=== PATIENT | female | born 1985 | race Caucasian/White ===

== ENCOUNTER 2018-02-22 16:37 | Emergency (ER) | payer OTHER ==
[~2018-02-22] VITALS: Ht 157.5 cm; Wt 86.5 kg
[~2018-02-22 16:37] MED LIST: Feosol PO; Motrin PO; NATALCARE RX1 TABLET PO; Percocet 5/325,Endoc PO; SUBUTEX2 MG SL; Zovirax PO
[2018-02-22 19:50] VITALS: BP 116/68
== END 2018-02-22 19:50 | disposition home or self-care (01) ==
LOC: EME 16:37
DX: Z76.0 Encounter for issue of repeat prescription (principal); Z33.1 Pregnant state, incidental; Z3A.23 23 weeks gestation of pregnancy
CPT/HCPCS: 99281; 99283; J0571